=== PATIENT | male | born 1990 | race African-American/Black ===

== ENCOUNTER 2020-07-19 12:33 | Outpatient (REF) | payer OTHER, SELFPAY | END 2020-07-19 12:34 | disposition home or self-care (01) | LOC: HO.LAB 12:33 | PROVIDERS: Visit Provider Internal Medicine | DX: Z20.828 Contact with and (suspected) exposure to other viral communicable diseases (principal) | CPT/HCPCS: 87635 ==

== ENCOUNTER 2020-08-28 01:23 | Emergency (ER) | payer OTHER, SELFPAY ==
[2020-08-28 01:26] VITALS: BP 140/91; PULSE 89; RESP 16; TEMP 36.5; O2SAT 99; BMI 21.1
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
[2020-08-28 02:00] VITALS: BP 134/78; PULSE 90; RESP 18; O2SAT 98
[2020-08-28] MEDS: Ketorolac Tromethamine 15 MG/ML VIAL IM (02:09)
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
[2020-08-28] MEDS: Amoxicillin/Potassium Clav 875 MG TABLET PO (03:29)
== END 2020-08-28 03:30 | disposition home or self-care (01) ==
PROVIDERS: Emergency Provider Student in an Organized Health Care Education/Training Program
DX: K05.10 Chronic gingivitis, plaque induced (principal)
CPT/HCPCS: 70486; 96372; 99284; J1885

== ENCOUNTER 2020-08-30 21:21 | Emergency (ER) | payer OTHER, SELFPAY ==
--- NOTE | 2020-08-30 | XR_ITS ---
EXAMINATION: XR CHEST CLINICAL INFORMATION: Chest wall COMPARISON: None TECHNIQUE: 2 views of the chest were obtained. FINDINGS: No significant abnormality is noted involving the heart, lungs, mediastinum, bony thorax or soft tissues. XR/XR chest 2V IMPRESSION: Unremarkable examination.
[2020-08-30 21:31] VITALS: BP 113/65; PULSE 97; RESP 16; O2SAT 99; BMI 21.1
--- NOTE | 2020-08-30 21:55 | PC.NURSE ---
PATIENT REFUSED EKG.
--- NOTE | 2020-08-30 22:27 | XR_ITS ---
EXAMINATION: XR RIBS, RIGHT CLINICAL INFORMATION: Right chest wall pain COMPARISON: None TECHNIQUE: 3 views of the right ribs were obtained. FINDINGS: Lungs are clear. No consolidation, pneumothorax, or pleural effusion. The cardiomediastinal silhouette and pulmonary vasculature are normal. Osseous structures are unremarkable. Ribs are intact. No fractures are identified. XR/XR ribs RT 2V IMPRESSION: Unremarkable examination.
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
== END 2020-08-30 23:06 | disposition home or self-care (01) ==
PROVIDERS: Emergency Provider Emergency Medicine Emergency Medical Services
DX: S29.011A Strain of muscle and tendon of front wall of thorax, initial encounter (principal); R07.81 Pleurodynia; F12.90 Cannabis use, unspecified, uncomplicated; Y04.8XXA Assault by other bodily force, initial encounter; Y93.9 Activity, unspecified; Y92.9 Unspecified place or not applicable; Y99.9 Unspecified external cause status; Z79.899 Other long term (current) drug therapy
CPT/HCPCS: 71046; 71100; 99283; 99284

== ENCOUNTER 2020-09-05 10:34 | Emergency (ER) | payer OTHER, SELFPAY ==
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
[2020-09-05 10:48] VITALS: BP 150/87; PULSE 90; RESP 18; TEMP 37.1; O2SAT 98; BMI 22.4
--- NOTE | 2020-09-05 11:17 | PC.NURSE ---
pt given discharge instructions, education provided. pt asking for percocet in addition to prescribed medication. pt informed he does need to see his pcp and dentist for follow up.
== END 2020-09-05 11:18 | disposition home or self-care (01) ==
PROVIDERS: Emergency Provider Emergency Medicine
DX: S20.211A Contusion of right front wall of thorax, initial encounter (principal); R68.84 Jaw pain; Y04.8XXA Assault by other bodily force, initial encounter; Y93.9 Activity, unspecified; Y92.9 Unspecified place or not applicable; Y99.9 Unspecified external cause status; Z79.899 Other long term (current) drug therapy; F12.90 Cannabis use, unspecified, uncomplicated
CPT/HCPCS: 99283

== ENCOUNTER 2020-09-08 12:12 | Emergency (ER) | payer OTHER, SELFPAY ==
[2020-09-08 12:16] VITALS: BP 143/71; PULSE 88; RESP 17; TEMP 36.6; O2SAT 99; BMI 21.1
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
== END 2020-09-08 13:04 | disposition home or self-care (01) ==
PROVIDERS: Emergency Provider Emergency Medicine
DX: S39.012A Strain of muscle, fascia and tendon of lower back, initial encounter (principal); V42 Car occupant injured in collision with two- or three-wheeled motor vehicle; Y93.9 Activity, unspecified; Y92.524 Gas station as the place of occurrence of the external cause; Y99.9 Unspecified external cause status; Z79.899 Other long term (current) drug therapy
CPT/HCPCS: 99283